=== PATIENT | female | born 1935 | race Caucasian/White ===

== ENCOUNTER 2020-06-24 16:07 | Observation (INO) | payer MEDICARE, BC ==
[2020-06-24] MEDS ORDERED: Sodium Chloride 0.9% 500 ML IV ONE (16:10)
[2020-06-24] MEDS ORDERED: Sodium Chloride 0.9% 10 ML Syringe FLUSH PRN (16:10)
[2020-06-24] MEDS ORDERED: Ondansetron 4 MG/2 ML SDV IVPUSH ONE (16:11)
--- NOTE | 2020-06-24 16:23 | EDM.PDOC ---
ED HPI GENERAL MEDICAL PROBLEM - General Chief Complaint: Gastrointestinal Problem Stated Complaint: COVID SYMPTOMS Time Seen by Provider: 06/24/20 16:18 Source of Information: Reports: Patient History Limitations: Reports: No Limitations - History of Present Illness INITIAL COMMENTS - FREE TEXT/NARRATIVE: Presents with N/V/D since 429 today. Diarrhea is watery brown, non-bloody. Denies abdominal pain. Also complains of generalized weakness. No recent travel, sick contacts, or recent antibiotics. Denies chest pain or SOB. Endorses slight cough. Received 2nd COVID vaccine on 06/22/20. The patient lives alone. Onset Date: 06/24/20 Onset Time: 04:30 Severity: Moderate Associated Symptoms: Reports: No Other Symptoms - Related Data Allergies Allergy/AdvReac Type Severity Reaction Status Date / Time Iodinated Contrast Media Allergy Severe Anaphylactic Verified 06/24/20 16:18 [Iodinated Contrast Media - Shock IV Dye] ketorolac tromethamine Allergy Abdominal Verified 06/24/20 16:18 [From Acular] Pain lisinopril Allergy Other Verified 06/24/20 16:18 Home Meds: Home Meds Aspirin 81 mg PO DAILY 12/05/15 [History] Insulin Detemir [Levemir] 25 units SUBCUT DAILY 12/05/15 [History] Metoprolol Tartrate 25 mg PO BID 12/05/15 [History] Multivitamin [Multivitamins] 1 cap PO DAILY 12/05/15 [History] Omeprazole 20 mg PO ASDIRECTED 12/05/15 [History] Potassium Chloride 10 meq PO ASDIRECTED 12/05/15 [History] Simvastatin 20 mg PO DAILY 12/05/15 [History] Triamterene/Hydrochlorothiazid [Triamterene-HCTZ 37.5-25 MG] 1 cap PO DAILY 12/05/15 [History] Insulin Aspart [NovoLOG] 0 unit SQ WITHMEALSANDBED PRN 05/15/16 [History] glipiZIDE [Glucotrol] 5 mg PO BID 05/15/16 [History] Acetaminophen [Acetaminophen Extra Strength] 1,000 mg PO Q6HR PRN 06/24/20 [History] Calcium Carbonate [Calcium] 500 mg PO TID 06/24/20 [History] Niacin [Niaspan] 500 mg PO ASDIRECTED 06/24/20 [History] Raloxifene [Evista] 60 mg PO DAILY 06/24/20 [History] Sennosides/Docusate Sodium [Senna Plus 8.6-50 mg Softgel] 1 tab PO BID 06/24/20 [History] traMADol [Ultram] 50 mg PO BEDTIME PRN 06/24/20 [History] traZODone 50 mg PO BEDTIME 06/24/20 [History] Past Medical History HEENT History: Reports: Cataract, Impaired Vision Cardiovascular History: Reports: Afib, Arrhythmia, High Cholesterol Respiratory History: Reports: None Gastrointestinal History: Reports: GERD Genitourinary History: Reports: Chronic Renal Insuffiency STAMPER BLOCKER History: Reports: Other 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 - Infectious Disease History Infectious Disease History: Reports: Chicken Pox, Measles, Mumps, Rubella - Past Surgical History HEENT Surgical History: Reports: Cataract Surgery GI Surgical History: Reports: Appendectomy, Cholecystectomy, Colonoscopy, Lysis of Adhesions Musculoskeletal Surgical History: Reports: Knee Replacement Social & Family History - Family History Family Medical History: No Pertinent Family History Other Cardiac Family History: SEE HX ED ROS GENERAL - Review of Systems Review Of Systems: Comprehensive ROS is negative, except as noted in HPI. ED EXAM, GI/ABD - Physical Exam Exam: See Below Exam Limited By: No Limitations General Appearance: Alert, WD/WN, No Apparent Distress Ears: Normal External Exam Nose: Normal Inspection Throat/Mouth: No Airway Compromise, Other (dry lips and oropharynx) Head: Atraumatic, Normocephalic Neck: Supple Respiratory/Chest: No Respiratory Distress, Lungs Clear, Normal Breath Sounds Cardiovascular: Regular Rate, Rhythm, Systolic Murmur GI/Abdominal Exam: Normal Bowel Sounds, Soft, No Distention, No Mass, Tender (mild LLQ) Back Exam: Full Range of Motion Extremities: Normal Range of Motion Neurological: Alert, Oriented, Normal Cognition Psychiatric: Normal Affect, Normal Mood Skin Exam: Warm, Dry, Intact #1 Interpretation EKG Date: 06/24/20 Time: 16:29 Rhythm: Other (sinus tachycardia) Rate (Beats/Min): 109 [place]: Normal P-Wave: Present QRS: Normal ST-T: Normal QT: Normal Comparison: NA - No Prior EKG Course - Vital Signs Last Recorded V/S: Last Vital Signs Temp 38.1 C 06/24/20 16:24 Pulse 114 H 06/24/20 16:24 Resp 18 06/24/20 16:24 BP 137/75 06/24/20 16:24 Pulse Ox 96 06/24/20 16:24 - Orders/Labs/Meds Orders: Active Orders 24 hr Category Date Time Status Admission Status [Patient Status] [ADT] Routine ADT 06/24/20 17:58 Ordered EKG Documentation Completion [RC] ASDIRECTED Care 06/24/20 16:17 Active Abdomen Pelvis wo Cont [CT] Stat Exams 06/24/20 16:11 Taken CULTURE BLOOD [BC] Urgent Lab 06/24/20 16:20 Received CULTURE BLOOD [BC] Urgent Lab 06/24/20 16:25 Received LACTIC ACID [CHEM] Stat Lab 06/24/20 19:20 Ordered STOOL CULTURE Stat Lab 06/24/20 16:17 Ordered Sodium Chloride 0.9% [Normal Saline] 1,000 ml Med 06/24/20 17:00 Active IV ASDIRECTED Sodium Chloride 0.9% [Saline Flush] Med 06/24/20 16:10 Active 10 ml FLUSH ASDIRECTED PRN Blood Culture x2 Reflex Set [OM.PC] Urgent Oth 06/24/20 16:08 Ordered Saline Lock Insert [OM.PC] Routine Oth 06/24/20 16:10 Ordered EKG 12 Lead [EK] Stat Ther 06/24/20 16:17 Ordered Medication Orders Sodium Chloride (Normal Saline) 1,000 mls @ 999 mls/hr IV ASDIRECTED ELPIDIO Sodium Chloride (Saline Flush) 10 ml FLUSH ASDIRECTED PRN PRN Reason: Keep Vein Open Labs: Laboratory Tests 06/24/20 06/24/20 06/24/20 Range/Units 16:13 16:20 16:20 WBC 11.6 H (3.0-10.3) x10-3/uL RBC 4.76 (3.60-5.20) x10(6)uL Hgb 13.4 (11.4-15.5) g/dL Hct 42.2 (34.2-48.2) % MCV 88.6 (76.7-100.5) fL MCH 28.2 (23.9-33.9) pg MCHC 31.8 L (31.9-34.8) g/dL RDW 13.8 (12.3-16.5) % Plt Count 120 L (151-488) x10(3)uL MPV 7.6 (7.1-12.4) fL Add Manual Diff Yes Neutrophils % (Manual) 84 H (46-82) % Lymphocytes % (Manual) 12 L (13-37) % Monocytes % (Manual) 4 (4-12) % Sodium 137 (135-145) mmol/L Potassium 3.4 L (3.5-5.3) mmol/L Chloride 99 L (100-110) mmol/L Carbon Dioxide 25 (21-32) mmol/L BUN 26 H (7-18) mg/dL Creatinine 1.7 H (0.55-1.02) mg/dL Est Cr Clr Drug Dosing 18.44 mL/min Estimated GFR (MDRD) 28 L (>60) BUN/Creatinine Ratio 15.3 (9-20) Glucose 195 H (80-116) mg/dL POC Glucose 172 H (74-100) mg/dL Lactic Acid (0.4-2.0) mmol/L Calcium 9.3 (8.6-10.2) mg/dL Total Bilirubin 0.4 (0.1-1.3) mg/dL AST 18 (5-25) IU/L ALT 15 D (12-36) U/L Alkaline Phosphatase 56 (56-112) IU/L Total Protein 7.3 (6.0-8.0) g/dL Albumin 3.2 (3.2-4.6) g/dL Globulin 4.1 g/dL Albumin/Globulin Ratio 0.8 Urine Color (YELLOW) Urine Appearance (CLEAR) Urine pH (5.0-6.5) Ur Specific [place] (1.010-1.025) Urine Protein (NEGATIVE) mg/dL Urine Glucose (UA) (NORMAL) mg/dL Urine Ketones (NEGATIVE) mg/dL Urine Occult Blood (NEGATIVE) Urine Nitrite (NEGATIVE) Urine Bilirubin (NEGATIVE) Urine Urobilinogen (NEGATIVE) mg/dL Ur Leukocyte Esterase (NEGATIVE) Urine RBC (0-5) Urine WBC (0-5) Ur Squamous Epith Cells (NS,R,O) Urine Bacteria (NS) SARS-CoV-2 RNA (JEROME) (NEGATIVE) 06/24/20 06/24/20 06/24/20 Range/Units 16:20 16:37 16:40 WBC (3.0-10.3) x10-3/uL RBC (3.60-5.20) x10(6)uL Hgb (11.4-15.5) g/dL Hct (34.2-48.2) % MCV (76.7-100.5) fL MCH (23.9-33.9) pg MCHC (31.9-34.8) g/dL RDW (12.3-16.5) % Plt Count (151-488) x10(3)uL MPV (7.1-12.4) fL Add Manual Diff Neutrophils % (Manual) (46-82) % Lymphocytes % (Manual) (13-37) % Monocytes % (Manual) (4-12) % Sodium (135-145) mmol/L Potassium (3.5-5.3) mmol/L Chloride (100-110) mmol/L Carbon Dioxide (21-32) mmol/L BUN (7-18) mg/dL Creatinine (0.55-1.02) mg/dL Est Cr Clr Drug Dosing mL/min Estimated GFR (MDRD) (>60) BUN/Creatinine Ratio (9-20) Glucose (80-116) mg/dL POC Glucose (74-100) mg/dL Lactic Acid 2.8 H* (0.4-2.0) mmol/L Calcium (8.6-10.2) mg/dL Total Bilirubin (0.1-1.3) mg/dL AST (5-25) IU/L ALT (12-36) U/L Alkaline Phosphatase (56-112) IU/L Total Protein (6.0-8.0) g/dL Albumin (3.2-4.6) g/dL Globulin g/dL Albumin/Globulin Ratio Urine Color Yellow (YELLOW) Urine Appearance Clear (CLEAR) Urine pH 5.0 (5.0-6.5) Ur Specific [place] 1.020 (1.010-1.025) Urine Protein Trace (NEGATIVE) mg/dL Urine Glucose (UA) Normal (NORMAL) mg/dL Urine Ketones Negative (NEGATIVE) mg/dL Urine Occult Blood Large H (NEGATIVE) Urine Nitrite Negative (NEGATIVE) Urine Bilirubin Negative (NEGATIVE) Urine Urobilinogen Normal (NEGATIVE) mg/dL Ur Leukocyte Esterase Negative (NEGATIVE) Urine RBC 10-20 H (0-5) Urine WBC 0-5 (0-5) Ur Squamous Epith Cells Few H (NS,R,O) Urine Bacteria Few H (NS) SARS-CoV-2 RNA (JEROME) Negative (NEGATIVE) Meds: Medications Generic Name Dose Route Start Last Admin Trade Name Freq PRN Reason Stop Dose Admin Sodium Chloride 1,000 mls @ 999 mls/hr 06/24/20 17:00 Normal Saline IV ASDIRECTED ELPIDIO Sodium Chloride 10 ml 06/24/20 16:10 Saline Flush FLUSH ASDIRECTED PRN Keep Vein Open Discontinued Medications Generic Name Dose Route Start Last Admin Trade Name Freq PRN Reason Stop Dose Admin Sodium Chloride 500 mls @ 500 mls/hr 06/24/20 16:10 06/24/20 16:59 Normal Saline IV 06/24/20 17:09 500 mls/hr .BOLUS ONE Administration Ondansetron HCl 4 mg 06/24/20 16:11 06/24/20 17:00 Zofran IVPUSH 06/24/20 16:12 4 mg ONETIME ONE Administration - Radiology Interpretation Free Text/Narrative:: CT Abd/Pelvis s/ contrast: IMPRESSION: No acute or specific finding to explain nausea, vomiting or diarrhea. Specifically the GI tract is within normal limits in caliber and appearance. Dictated by Flako Navarro MD @ 06/24/2020 5:53:37 PM - Re-Assessments/Exams Free Text/Narrative Re-Assessment/Exam: 06/24/20 18:03 Patient's nausea has improved. Departure - Departure Time of Disposition: 18:05 Disposition: Refer to Observation Condition: Fair Clinical Impression: Gastroenteritis, Elevated lactic acid level - Discharge Information Referrals: Ling Barnes MELTER OPERATOR [Primary Care Provider] - Forms: ED Department Discharge Sepsis Event Note (ED) - Focused Exam Vital Signs: Vital Signs Temp Pulse Resp BP Pulse Ox 06/24/20 16:24 38.1 C 114 H 18 137/75 96 06/24/20 16:23 38.1 C 114 H 18 137/75 96 - My Orders Last 24 Hours: My Active Orders 06/24/20 16:08 Blood Culture x2 Reflex Set [OM.PC] Urgent 06/24/20 16:10 Sodium Chloride 0.9% [Saline Flush] 10 ml FLUSH ASDIRECTED PRN Saline Lock Insert [OM.PC] Routine 06/24/20 16:11 Abdomen Pelvis wo Cont [CT] Stat 06/24/20 16:17 EKG Documentation Completion [RC] ASDIRECTED STOOL CULTURE Stat EKG 12 Lead [EK] Stat 06/24/20 16:20 CULTURE BLOOD [BC] Urgent 06/24/20 16:25 CULTURE BLOOD [BC] Urgent 06/24/20 17:00 Sodium Chloride 0.9% [Normal Saline] 1,000 ml IV ASDIRECTED 06/24/20 17:58 Admission Status [Patient Status] [ADT] Routine 06/24/20 19:20 LACTIC ACID [CHEM] Stat - Assessment/Plan Last 24 Hours: My Active Orders 06/24/20 16:08 Blood Culture x2 Reflex Set [OM.PC] Urgent 06/24/20 16:10 Sodium Chloride 0.9% [Saline Flush] 10 ml FLUSH ASDIRECTED PRN Saline Lock Insert [OM.PC] Routine 06/24/20 16:11 Abdomen Pelvis wo Cont [CT] Stat 06/24/20 16:17 EKG Documentation Completion [RC] ASDIRECTED STOOL CULTURE Stat EKG 12 Lead [EK] Stat 06/24/20 16:20 CULTURE BLOOD [BC] Urgent 06/24/20 16:25 CULTURE BLOOD [BC] Urgent 06/24/20 17:00 Sodium Chloride 0.9% [Normal Saline] 1,000 ml IV ASDIRECTED 06/24/20 17:58 Admission Status [Patient Status] [ADT] Routine 06/24/20 19:20 LACTIC ACID [CHEM] Stat
[2020-06-24] MEDS ORDERED: Sodium Chloride 0.9% 1,000 ML IV SCH (17:00)
[2020-06-24] MEDS: Insulin Lispro 100 Unit/ML 3 ML KwikPen SUBCUT SCH (18:00)
[2020-06-24] MEDS ORDERED: Piperacillin/Tazobactam 2.25 GM in Sodium Chloride 0.9% 50 ML IV ONE (18:03)
[2020-06-24] MEDS ORDERED: Ondansetron 4 MG/2 ML SDV IV PRN (18:07)
[2020-06-24] MEDS ORDERED: 50% Dextrose in Water 50 ML Syringe IVPUSH PRN (18:19)
[2020-06-24] MEDS ORDERED: Glucagon,Human Recombinant 1 MG Vial IM PRN (18:19)
[2020-06-24] MEDS: Pantoprazole 40 MG Vial IVPUSH SCH (18:56)
[2020-06-24] MEDS: Sodium Chloride 0.9% 1,000 ML IV SCH (19:35)
[2020-06-24] MEDS ORDERED: traZODone 100 MG Tab PO SCH (21:00)
[2020-06-24] MEDS ORDERED: traZODone 50 MG Tab ONE (21:19)
[2020-06-24] MEDS: Metoprolol Tartrate 25 MG Tab PO SCH (21:21)
[2020-06-25] MEDS: Piperacillin/Tazobactam 2.25 GM in Sodium Chloride 0.9% 50 ML IV SCH ×2 (01:43→10:21)
[2020-06-25] MEDS: Sodium Chloride 0.9% 1,000 ML IV SCH (06:00)
[2020-06-25] MEDS: Acetaminophen 500 MG Tab PO PRN ×2 (07:42→20:31)
[2020-06-25] MEDS: Insulin Lispro 100 Unit/ML 3 ML KwikPen SUBCUT SCH ×3 (08:00→18:24)
[2020-06-25] MEDS: Metoprolol Tartrate 25 MG Tab PO SCH ×2 (09:00→20:28)
[2020-06-25] MEDS ORDERED: Insulin Glargine,Human Rec. Analog 100 Units/ML 3 ML Pen SUBCUT ONE (09:58)
[2020-06-25] MEDS ORDERED: Insulin Lispro 100 Unit/ML 3 ML KwikPen SUBCUT ONE (09:58)
[2020-06-25] MEDS: Insulin Glargine,Human Rec. Analog 100 Units/ML 3 ML Pen SUBCUT SCH (10:08)
[2020-06-25] MEDS: Pantoprazole 40 MG Vial IVPUSH SCH (10:18)
[2020-06-25] MEDS: Aspirin 81 MG Tab.Chew PO SCH (10:22)
[2020-06-25] MEDS: Potassium Chloride 20 MEQ Tab.ER PO SCH ×2 (11:07→20:27)
--- NOTE | 2020-06-25 13:44 | PCM.HP.2 ---
H&P History of Present Illness - General Date of Service: 06/25/20 Admit Problem/Dx: Admission Diagnosis/Problem Admission Diagnosis/Problem Nausea, vomiting & Diarrhea, adverse effect of Covid vaccination Source of Information: Patient, EMS Notes Reviewed - History of Present Illness Initial Comments - Free Text/Narative: Janice started having Nausea, vomiting and diarrhea yesterday morning, loose brown stools. Denies any fevers, chills, sinus symptoms, shortness of breath, chest pain, abdominal pain. Had body aches yesterday. Had 2nd Covid vaccine 06/22/2020. Covid test negative. WBC was 11.6, 7.9 today. UA showed blood, 10-20 RBC but no Leukocyte esterase, nitrates or WBC in urine. Received 1 dose of Zosyn in ER. No urine culture done. No urinary symptoms. She has history of diabetes, on insulin. Lives alone. Magnesium 1.5, Potassium 3.1. Family unable to bring her home medications in. Generalized Pain Score (Numeric/FACES): 1 - Related Data Allergies/Adverse Reactions: Allergies Allergy/AdvReac Type Severity Reaction Status Date / Time Iodinated Contrast Media Allergy Severe Anaphylactic Verified 06/24/20 16:18 [Iodinated Contrast Media - Shock IV Dye] ketorolac tromethamine Allergy Abdominal Verified 06/24/20 16:18 [From Acular] Pain lisinopril Allergy Other Verified 06/24/20 16:18 Home Medications: Home Meds Aspirin 81 mg PO DAILY 12/05/15 [History] Insulin Detemir [Levemir] 25 units SUBCUT DAILY 12/05/15 [History] Metoprolol Tartrate 25 mg PO BID 12/05/15 [History] Multivitamin [Multivitamins] 1 cap PO DAILY 12/05/15 [History] Omeprazole 20 mg PO ASDIRECTED 12/05/15 [History] Potassium Chloride 10 meq PO ASDIRECTED 12/05/15 [History] Simvastatin 20 mg PO DAILY 12/05/15 [History] Triamterene/Hydrochlorothiazid [Triamterene-HCTZ 37.5-25 MG] 1 cap PO DAILY 12/05/15 [History] Insulin Aspart [NovoLOG] 0 unit SQ WITHMEALSANDBED PRN 05/15/16 [History] glipiZIDE [Glucotrol] 5 mg PO BID 05/15/16 [History] Acetaminophen [Acetaminophen Extra Strength] 1,000 mg PO Q6HR PRN 06/24/20 [History] Calcium Carbonate [Calcium] 500 mg PO TID 06/24/20 [History] Niacin [Niaspan] 500 mg PO ASDIRECTED 06/24/20 [History] Raloxifene [Evista] 60 mg PO DAILY 06/24/20 [History] Sennosides/Docusate Sodium [Senna Plus 8.6-50 mg Softgel] 1 tab PO BID 06/24/20 [History] traMADol [Ultram] 50 mg PO BEDTIME PRN 06/24/20 [History] traZODone 50 mg PO BEDTIME 06/24/20 [History] Past Medical History HEENT History: Reports: Cataract, Impaired Vision Cardiovascular History: Reports: Afib, Arrhythmia, High Cholesterol Respiratory History: Reports: None Gastrointestinal History: Reports: GERD Genitourinary History: Reports: Chronic Renal Insuffiency TRANSFUSION AIDE History: Reports: Other OB/BYN History: III PARA II AB I Musculoskeletal History: Reports: Gout, Osteoporosis Neurological History: Reports: None Psychiatric History: Reports: None Endocrine/Metabolic History: Reports: Diabetes, Type II Hematologic History: Reports: None Immunologic History: Reports: None Oncologic (Cancer) History: Reports: Breast Other Oncologic History: STATES HAD SKIN LESIONS REMOVED, UNKNOWN TYPE. 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 LOSS OF HEARING R/T IT. Cardiovascular Surgical History: Reports: None Respiratory Surgical History: Reports: None GI Surgical History: Reports: Appendectomy, Cholecystectomy, Colonoscopy, Lysis of Adhesions Female Surgical History: Reports: Hysterectomy Endocrine Surgical History: Reports: None Musculoskeletal Surgical History: Reports: Knee Replacement Oncologic Surgical History: Reports: Lumpectomy, Mastectomy Other Oncologic Surgeries/Procedures: LEFT BREAST MASTECTOMY Social & Family History - Family History Family Medical History: No Pertinent Family History Other Cardiac Family History: SEE HX - Tobacco Use Tobacco Use Status *Q: Never Tobacco User - Caffeine Use Caffeine Use: Reports: Coffee - Recreational Drug Use Recreational Drug Use: No H&P Review of Systems - Review of Systems: Review Of Systems: Comprehensive ROS is negative, except as noted in HPI. Exam - Exam Exam: See Below - Vital Signs Vital Signs: Last Vital Signs Temp 97.8 F 06/25/20 08:00 Pulse 72 06/25/20 09:00 Resp 18 06/25/20 08:00 BP 98/49 L 06/25/20 09:00 Pulse Ox 94 L 06/25/20 08:00 Weight: 146 lb 9.6 oz - Exam General: Alert, Oriented, Cooperative. No: Mild Distress HEENT: PERRLA, Conjunctiva Clear, EOMI, Hearing Intact, Mucosa Moist & [place] Neck: Trachea Midline Lungs: Clear to Auscultation, Normal Respiratory Effort Cardiovascular: Regular Rate, Regular Rhythm GI/Abdominal Exam: Normal Bowel Sounds, Soft, No Distention, Guarding, Tender (LUQ). No: Rigid, Rebound (Female) Exam: Deferred Rectal (Female) Exam: Deferred Extremities: No Pedal Edema Peripheral Pulses: 2+: Radial (L), Radial (R) Neurological: Cranial Nerves Intact, Normal Speech, Normal Tone - Patient Data Lab Results Last 24 hrs: Laboratory Results - last 24 hr 06/24/20 06/24/20 06/24/20 Range/Units 16:13 16:20 16:20 WBC 11.6 H (3.0-10.3) x10-3/uL RBC 4.76 (3.60-5.20) x10(6)uL Hgb 13.4 (11.4-15.5) g/dL Hct 42.2 (34.2-48.2) % MCV 88.6 (76.7-100.5) fL MCH 28.2 (23.9-33.9) pg MCHC 31.8 L (31.9-34.8) g/dL RDW 13.8 (12.3-16.5) % Plt Count 120 L (151-488) x10(3)uL MPV 7.6 (7.1-12.4) fL Neut % (Auto) (30.8-76.2) % Lymph % (Auto) (18.4-52.1) % [place] % (Auto) (4.4-15.7) % Eos % (Auto) (0.6-8.1) % Baso % (Auto) (0.2-1.5) % Neut # (Auto) (1.5-6.3) x10-3/uL Lymph # (Auto) (1.0-4.4) x10-3/uL [place] # (Auto) (0.3-1.0) x10-3/uL Eos # (Auto) (0.0-0.8) x10-3/uL Baso # (Auto) (0.0-0.1) x10-3/uL Add Manual Diff Yes Neutrophils % (Manual) 84 H (46-82) % Lymphocytes % (Manual) 12 L (13-37) % Monocytes % (Manual) 4 (4-12) % Sodium 137 (135-145) mmol/L Potassium 3.4 L (3.5-5.3) mmol/L Chloride 99 L (100-110) mmol/L Carbon Dioxide 25 (21-32) mmol/L BUN 26 H (7-18) mg/dL Creatinine 1.7 H (0.55-1.02) mg/dL Est Cr Clr Drug Dosing 18.44 mL/min Estimated GFR (MDRD) 28 L (>60) BUN/Creatinine Ratio 15.3 (9-20) Glucose 195 H (80-116) mg/dL POC Glucose 172 H (74-100) mg/dL Lactic Acid (0.4-2.0) mmol/L Calcium 9.3 (8.6-10.2) mg/dL Magnesium (1.8-2.5) mg/dL Total Bilirubin 0.4 (0.1-1.3) mg/dL AST 18 (5-25) IU/L ALT 15 D (12-36) U/L Alkaline Phosphatase 56 (56-112) IU/L Total Protein 7.3 (6.0-8.0) g/dL Albumin 3.2 (3.2-4.6) g/dL Globulin 4.1 g/dL Albumin/Globulin Ratio 0.8 Urine Color (YELLOW) Urine Appearance (CLEAR) Urine pH (5.0-6.5) Ur Specific [place] (1.010-1.025) Urine Protein (NEGATIVE) mg/dL Urine Glucose (UA) (NORMAL) mg/dL Urine Ketones (NEGATIVE) mg/dL Urine Occult Blood (NEGATIVE) Urine Nitrite (NEGATIVE) Urine Bilirubin (NEGATIVE) Urine Urobilinogen (NEGATIVE) mg/dL Ur Leukocyte Esterase (NEGATIVE) Urine RBC (0-5) Urine WBC (0-5) Ur Squamous Epith Cells (NS,R,O) Urine Bacteria (NS) SARS-CoV-2 RNA (JEROME) (NEGATIVE) 06/24/20 06/24/20 06/24/20 Range/Units 16:20 16:37 16:40 WBC (3.0-10.3) x10-3/uL RBC (3.60-5.20) x10(6)uL Hgb (11.4-15.5) g/dL Hct (34.2-48.2) % MCV (76.7-100.5) fL MCH (23.9-33.9) pg MCHC (31.9-34.8) g/dL RDW (12.3-16.5) % Plt Count (151-488) x10(3)uL MPV (7.1-12.4) fL Neut % (Auto) (30.8-76.2) % Lymph % (Auto) (18.4-52.1) % [place] % (Auto) (4.4-15.7) % Eos % (Auto) (0.6-8.1) % Baso % (Auto) (0.2-1.5) % Neut # (Auto) (1.5-6.3) x10-3/uL Lymph # (Auto) (1.0-4.4) x10-3/uL [place] # (Auto) (0.3-1.0) x10-3/uL Eos # (Auto) (0.0-0.8) x10-3/uL Baso # (Auto) (0.0-0.1) x10-3/uL Add Manual Diff Neutrophils % (Manual) (46-82) % Lymphocytes % (Manual) (13-37) % Monocytes % (Manual) (4-12) % Sodium (135-145) mmol/L Potassium (3.5-5.3) mmol/L Chloride (100-110) mmol/L Carbon Dioxide (21-32) mmol/L BUN (7-18) mg/dL Creatinine (0.55-1.02) mg/dL Est Cr Clr Drug Dosing mL/min Estimated GFR (MDRD) (>60) BUN/Creatinine Ratio (9-20) Glucose (80-116) mg/dL POC Glucose (74-100) mg/dL Lactic Acid 2.8 H* (0.4-2.0) mmol/L Calcium (8.6-10.2) mg/dL Magnesium (1.8-2.5) mg/dL Total Bilirubin (0.1-1.3) mg/dL AST (5-25) IU/L ALT (12-36) U/L Alkaline Phosphatase (56-112) IU/L Total Protein (6.0-8.0) g/dL Albumin (3.2-4.6) g/dL Globulin g/dL Albumin/Globulin Ratio Urine Color Yellow (YELLOW) Urine Appearance Clear (CLEAR) Urine pH 5.0 (5.0-6.5) Ur Specific [place] 1.020 (1.010-1.025) Urine Protein Trace (NEGATIVE) mg/dL Urine Glucose (UA) Normal (NORMAL) mg/dL Urine Ketones Negative (NEGATIVE) mg/dL Urine Occult Blood Large H (NEGATIVE) Urine Nitrite Negative (NEGATIVE) Urine Bilirubin Negative (NEGATIVE) Urine Urobilinogen Normal (NEGATIVE) mg/dL Ur Leukocyte Esterase Negative (NEGATIVE) Urine RBC 10-20 H (0-5) Urine WBC 0-5 (0-5) Ur Squamous Epith Cells Few H (NS,R,O) Urine Bacteria Few H (NS) SARS-CoV-2 RNA (JEROME) Negative (NEGATIVE) 06/24/20 06/24/20 06/25/20 Range/Units 19:20 21:44 06:30 WBC 7.9 (3.0-10.3) x10-3/uL RBC 3.97 (3.60-5.20) x10(6)uL Hgb 11.4 (11.4-15.5) g/dL Hct 35.5 (34.2-48.2) % MCV 89.3 (76.7-100.5) fL MCH 28.7 (23.9-33.9) pg MCHC 32.2 (31.9-34.8) g/dL RDW 13.9 (12.3-16.5) % Plt Count 101 L (151-488) x10(3)uL MPV 7.6 (7.1-12.4) fL Neut % (Auto) 71.7 (30.8-76.2) % Lymph % (Auto) 20.4 (18.4-52.1) % [place] % (Auto) 7.4 (4.4-15.7) % Eos % (Auto) 0.3 L (0.6-8.1) % Baso % (Auto) 0.2 (0.2-1.5) % Neut # (Auto) 5.7 (1.5-6.3) x10-3/uL Lymph # (Auto) 1.6 (1.0-4.4) x10-3/uL [place] # (Auto) 0.6 (0.3-1.0) x10-3/uL Eos # (Auto) 0.0 (0.0-0.8) x10-3/uL Baso # (Auto) 0.0 (0.0-0.1) x10-3/uL Add Manual Diff Neutrophils % (Manual) (46-82) % Lymphocytes % (Manual) (13-37) % Monocytes % (Manual) (4-12) % Sodium (135-145) mmol/L Potassium (3.5-5.3) mmol/L Chloride (100-110) mmol/L Carbon Dioxide (21-32) mmol/L BUN (7-18) mg/dL Creatinine (0.55-1.02) mg/dL Est Cr Clr Drug Dosing mL/min Estimated GFR (MDRD) (>60) BUN/Creatinine Ratio (9-20) Glucose (80-116) mg/dL POC Glucose 134 H (74-100) mg/dL Lactic Acid 2.1 H* (0.4-2.0) mmol/L Calcium (8.6-10.2) mg/dL Magnesium (1.8-2.5) mg/dL Total Bilirubin (0.1-1.3) mg/dL AST (5-25) IU/L ALT (12-36) U/L Alkaline Phosphatase (56-112) IU/L Total Protein (6.0-8.0) g/dL Albumin (3.2-4.6) g/dL Globulin g/dL Albumin/Globulin Ratio Urine Color (YELLOW) Urine Appearance (CLEAR) Urine pH (5.0-6.5) Ur Specific [place] (1.010-1.025) Urine Protein (NEGATIVE) mg/dL Urine Glucose (UA) (NORMAL) mg/dL Urine Ketones (NEGATIVE) mg/dL Urine Occult Blood (NEGATIVE) Urine Nitrite (NEGATIVE) Urine Bilirubin (NEGATIVE) Urine Urobilinogen (NEGATIVE) mg/dL Ur Leukocyte Esterase (NEGATIVE) Urine RBC (0-5) Urine WBC (0-5) Ur Squamous Epith Cells (NS,R,O) Urine Bacteria (NS) SARS-CoV-2 RNA (JEROME) (NEGATIVE) 06/25/20 06/25/20 06/25/20 Range/Units 06:30 06:30 06:30 WBC (3.0-10.3) x10-3/uL RBC (3.60-5.20) x10(6)uL Hgb (11.4-15.5) g/dL Hct (34.2-48.2) % MCV (76.7-100.5) fL MCH (23.9-33.9) pg MCHC (31.9-34.8) g/dL RDW (12.3-16.5) % Plt Count (151-488) x10(3)uL MPV (7.1-12.4) fL Neut % (Auto) (30.8-76.2) % Lymph % (Auto) (18.4-52.1) % [place] % (Auto) (4.4-15.7) % Eos % (Auto) (0.6-8.1) % Baso % (Auto) (0.2-1.5) % Neut # (Auto) (1.5-6.3) x10-3/uL Lymph # (Auto) (1.0-4.4) x10-3/uL [place] # (Auto) (0.3-1.0) x10-3/uL Eos # (Auto) (0.0-0.8) x10-3/uL Baso # (Auto) (0.0-0.1) x10-3/uL Add Manual Diff Neutrophils % (Manual) (46-82) % Lymphocytes % (Manual) (13-37) % Monocytes % (Manual) (4-12) % Sodium 141 (135-145) mmol/L Potassium 3.1 L (3.5-5.3) mmol/L Chloride 106 D (100-110) mmol/L Carbon Dioxide 27 (21-32) mmol/L BUN 17 (7-18) mg/dL Creatinine 1.5 H (0.55-1.02) mg/dL Est Cr Clr Drug Dosing 20.90 mL/min Estimated GFR (MDRD) 33 L (>60) BUN/Creatinine Ratio 11.3 (9-20) Glucose 76 L D (80-116) mg/dL POC Glucose (74-100) mg/dL Lactic Acid 1.0 (0.4-2.0) mmol/L Calcium 7.3 L D (8.6-10.2) mg/dL Magnesium 1.5 L (1.8-2.5) mg/dL Total Bilirubin (0.1-1.3) mg/dL AST (5-25) IU/L ALT (12-36) U/L Alkaline Phosphatase (56-112) IU/L Total Protein (6.0-8.0) g/dL Albumin (3.2-4.6) g/dL Globulin g/dL Albumin/Globulin Ratio Urine Color (YELLOW) Urine Appearance (CLEAR) Urine pH (5.0-6.5) Ur Specific [place] (1.010-1.025) Urine Protein (NEGATIVE) mg/dL Urine Glucose (UA) (NORMAL) mg/dL Urine Ketones (NEGATIVE) mg/dL Urine Occult Blood (NEGATIVE) Urine Nitrite (NEGATIVE) Urine Bilirubin (NEGATIVE) Urine Urobilinogen (NEGATIVE) mg/dL Ur Leukocyte Esterase (NEGATIVE) Urine RBC (0-5) Urine WBC (0-5) Ur Squamous Epith Cells (NS,R,O) Urine Bacteria (NS) SARS-CoV-2 RNA (JEROME) (NEGATIVE) 06/25/20 06/25/20 Range/Units 09:52 11:33 WBC (3.0-10.3) x10-3/uL RBC (3.60-5.20) x10(6)uL Hgb (11.4-15.5) g/dL Hct (34.2-48.2) % MCV (76.7-100.5) fL MCH (23.9-33.9) pg MCHC (31.9-34.8) g/dL RDW (12.3-16.5) % Plt Count (151-488) x10(3)uL MPV (7.1-12.4) fL Neut % (Auto) (30.8-76.2) % Lymph % (Auto) (18.4-52.1) % [place] % (Auto) (4.4-15.7) % Eos % (Auto) (0.6-8.1) % Baso % (Auto) (0.2-1.5) % Neut # (Auto) (1.5-6.3) x10-3/uL Lymph # (Auto) (1.0-4.4) x10-3/uL [place] # (Auto) (0.3-1.0) x10-3/uL Eos # (Auto) (0.0-0.8) x10-3/uL Baso # (Auto) (0.0-0.1) x10-3/uL Add Manual Diff Neutrophils % (Manual) (46-82) % Lymphocytes % (Manual) (13-37) % Monocytes % (Manual) (4-12) % Sodium (135-145) mmol/L Potassium (3.5-5.3) mmol/L Chloride (100-110) mmol/L Carbon Dioxide (21-32) mmol/L BUN (7-18) mg/dL Creatinine (0.55-1.02) mg/dL Est Cr Clr Drug Dosing mL/min Estimated GFR (MDRD) (>60) BUN/Creatinine Ratio (9-20) Glucose (80-116) mg/dL POC Glucose 162 H 172 H (74-100) mg/dL Lactic Acid (0.4-2.0) mmol/L Calcium (8.6-10.2) mg/dL Magnesium (1.8-2.5) mg/dL Total Bilirubin (0.1-1.3) mg/dL AST (5-25) IU/L ALT (12-36) U/L Alkaline Phosphatase (56-112) IU/L Total Protein (6.0-8.0) g/dL Albumin (3.2-4.6) g/dL Globulin g/dL Albumin/Globulin Ratio Urine Color (YELLOW) Urine Appearance (CLEAR) Urine pH (5.0-6.5) Ur Specific [place] (1.010-1.025) Urine Protein (NEGATIVE) mg/dL Urine Glucose (UA) (NORMAL) mg/dL Urine Ketones (NEGATIVE) mg/dL Urine Occult Blood (NEGATIVE) Urine Nitrite (NEGATIVE) Urine Bilirubin (NEGATIVE) Urine Urobilinogen (NEGATIVE) mg/dL Ur Leukocyte Esterase (NEGATIVE) Urine RBC (0-5) Urine WBC (0-5) Ur Squamous Epith Cells (NS,R,O) Urine Bacteria (NS) SARS-CoV-2 RNA (JEROME) (NEGATIVE) Result Diagrams: 06/25/20 06:30 06/25/20 06:30 Sepsis Event Note - Evaluation Sepsis Screening Result: No Definite Risk - Focused Exam Vital Signs: Vital Signs Temp Pulse Pulse Resp BP BP Pulse Ox 06/25/20 09:00 72 98/49 L 06/25/20 08:00 97.8 F 72 18 98/49 L 94 L *Q Meaningful Use (ADM) - VTE *Q VTE Mechanical Contraindications *Q: At Risk for Falls - VTE Risk Assess *Q Each Risk Factor Represents 1 Point: None Total Score 1 Point Risk Factors: 0 Each Risk Factor Represents 2 Points: None Total Score 2 Point Risk Factors: 0 Each Risk Factor Represents 3 Points: Age 75 Years or Greater Total Score 3 Point Risk Factors: 3 Each Risk Factor Represents 5 Points: None Total Score 5 Point Risk Factors: 0 Venous Thromboembolism Risk Factor Score *Q: 3 - Problem List (1) Nausea & vomiting SNOMED Code(s): 72951406 ICD Code: R11.2 - NAUSEA WITH VOMITING, UNSPECIFIED Status: Acute Current Visit: Yes (2) Diarrhea after vaccination SNOMED Code(s): 21284646 ICD Code: R19.7 - DIARRHEA, UNSPECIFIED; T50.Z95A - ADVERSE EFFECT OF VACCINES AND BIOLOGICAL SUBSTANCES, INIT Status: Acute Current Visit: Yes (3) Adverse effect of COVID-19 vaccine SNOMED Code(s): 638978156 ICD Code: T50.B95A - ADVERSE EFFECT OF OTHER VIRAL VACCINES, INITIAL ENCOUNTER Status: Acute Current Visit: Yes (4) Hypokalemia due to excessive gastrointestinal loss of potassium SNOMED Code(s): 11046650 ICD Code: E87.6 - HYPOKALEMIA Status: Acute Current Visit: Yes (5) Hypomagnesemia SNOMED Code(s): 410228578 ICD Code: E83.42 - HYPOMAGNESEMIA Status: Acute Current Visit: Yes (6) Diabetes SNOMED Code(s): 93625801 ICD Code: E11.9 - TYPE 2 DIABETES MELLITUS WITHOUT COMPLICATIONS Status: Chronic Current Visit: Yes Qualifiers: Diabetes mellitus type: type 2 Diabetes mellitus long term care administrator insulin use: with long term care administrator use (7) Hypertension SNOMED Code(s): 91637020 ICD Code: I10 - ESSENTIAL (PRIMARY) HYPERTENSION Status: Chronic Current Visit: Yes (8) GERD (gastroesophageal reflux disease) SNOMED Code(s): 699843358 ICD Code: K21.9 - GASTRO-ESOPHAGEAL REFLUX DISEASE WITHOUT ESOPHAGITIS Status: Chronic Current Visit: Yes (9) Hyperlipidemia SNOMED Code(s): 68436927 ICD Code: E78.5 - HYPERLIPIDEMIA, UNSPECIFIED Status: Chronic Current Visit: Yes (10) Gastroenteritis SNOMED Code(s): 65909348 ICD Code: K52.9 - NONINFECTIVE GASTROENTERITIS AND COLITIS, UNSPECIFIED St atus: Ruled-out Current Visit: Yes Problem List Initiated/Reviewed/Updated: Yes Orders Last 24hrs: Active Orders 24 hr Category Date Time Status Admission Status [Patient Status] [ADT] Routine ADT 06/24/20 17:58 Active Ambulate [RC] PER UNIT ROUTINE Care 06/24/20 18:11 Active Antiembolic Devices [RC] .Routine Care 06/24/20 18:07 Active Blood Glucose Check, Bedside [RC] QIDACANDBED Care 06/24/20 18:07 Active EKG Documentation Completion [RC] ASDIRECTED Care 06/24/20 16:17 Active Height and Weight [RC] DAILY Care 06/24/20 18:07 Active Intake and Output [RC] QSHIFT Care 06/24/20 18:10 Active Notify Provider Vital Signs [RC] ASDIRECTED Care 06/24/20 18:11 Active Oxygen Therapy [RC] PRN Care 06/24/20 18:07 Active Up With Assistance [RC] ASDIRECTED Care 06/24/20 18:07 Active VTE/DVT Education [RC] Per Unit Routine Care 06/24/20 18:07 Active Vital Signs [RC] QSHIFT Care 06/24/20 18:07 Active Consistent Carbohydrate Diet [DIET] Diet 06/25/20 Lunch Active Abdomen Pelvis wo Cont [CT] Stat Exams 06/24/20 16:11 Taken BASIC METABOLIC PANEL,BMP [CHEM] Routine Lab 06/26/20 06:00 Ordered C DIFFICILE AG/TOXIN W/REFLEX [RM] Stat Lab 06/24/20 18:24 Ordered CBC WITH AUTO DIFF [HEME] Routine Lab 06/26/20 06:00 Ordered CULTURE BLOOD [BC] Urgent Lab 06/24/20 16:20 Received CULTURE BLOOD [BC] Urgent Lab 06/24/20 16:25 Received STOOL CULTURE Stat Lab 06/24/20 16:17 Ordered UA W/MICROSCOPIC [URIN] Routine Lab 06/25/20 13:00 Ordered Acetaminophen [Tylenol Extra Strength] Med 06/24/20 18:14 Active 1,000 mg PO Q6H PRN Aspirin Med 06/25/20 09:00 Active 81 mg PO DAILY Dextrose 50% in Water Med 06/24/20 18:19 Active 50 ml IVPUSH ASDIRECTED PRN Glucagon,Human Recombinant [GlucaGen] Med 06/24/20 18:19 Active 1 mg IM ASDIRECTED PRN Insulin Glarg,Human.Rec.Analog [LantUS Solostar] Med 06/25/20 09:00 Active 25 units SUBCUT DAILY Insulin Lispro [HumaLOG] Med 06/24/20 18:19 Active See Protocol SUBCUT TIDMEALS Magnesium Oxide Med 06/25/20 18:00 Active 400 mg PO DAILY@1800 Metoprolol Tartrate [Lopressor] Med 06/24/20 21:00 Active 25 mg PO BID Ondansetron [Zofran] Med 06/24/20 18:07 Active 4 mg IV Q8H PRN Pantoprazole [ProTONIX IV] Med 06/24/20 18:30 Active 40 mg IVPUSH DAILY Potassium Chloride [Klor-Con M20] Med 06/25/20 10:30 Active 20 meq PO BID Sodium Chloride 0.9% [Normal Saline] 1,000 ml Med 06/24/20 18:15 Active IV ASDIRECTED Sodium Chloride 0.9% [Saline Flush] Med 06/24/20 16:10 Active 10 ml FLUSH ASDIRECTED PRN traZODone Med 06/25/20 21:00 Active 50 mg PO BEDTIME Antiembolic Hose [OM.PC] Per Unit Routine Oth 06/24/20 18:11 Ordered Blood Culture x2 Reflex Set [OM.PC] Urgent Oth 06/24/20 16:08 Ordered Saline Lock Insert [OM.PC] Routine Oth 06/24/20 16:10 Ordered Resuscitation Status Routine Resus Stat 06/24/20 18:07 Ordered EKG 12 Lead [EK] Stat Ther 06/24/20 16:17 Ordered Medication Orders Acetaminophen (Tylenol Extra Strength) 1,000 mg PO Q6H PRN PRN Reason: Pain Last Admin: 06/25/20 07:42 Dose: 1,000 mg Documented by: PAULO Aspirin (Aspirin) 81 mg PO DAILY [facility] Last Admin: 06/25/20 10:22 Dose: 81 mg Documented by: MAXIMILIANO Dextrose/Water (Dextrose 50% In Water) 50 ml IVPUSH ASDIRECTED PRN PRN Reason: Hypoglycemia Glucagon (Glucagen) 1 mg IM ASDIRECTED PRN PRN Reason: Hypoglycemia Sodium Chloride (Normal Saline) 1,000 mls @ 100 mls/hr IV ASDIRECTED ELPIDIO Last Admin: 06/25/20 06:00 Dose: 100 mls/hr Documented by: Infusion: 06/25/20 05:35 Dose: 100 mls/hr Documented by: Admin: 06/24/20 19:35 Dose: 100 mls/hr Documented by: MAXIMILIANO Insulin Glargine (Lantus Solostar) 25 units SUBCUT DAILY [facility] Last Admin: 06/25/20 10:08 Dose: 25 units Documented by: MAXIMILIANO Cosigned by: OLSOMAL Insulin Human Lispro (Humalog) 0 unit SUBCUT TIDMEALS [facility]; Protocol Last Admin: 06/25/20 12:30 Dose: 1 units Documented by: MAXIMILIANO Cosigned by: [email or web address] Admin: 06/25/20 08:00 Dose: Not Given Documented by: Admin: 06/24/20 18:00 Dose: Not Given Documented by: VAIBHAV Magnesium Oxide (Magnesium Oxide) 400 mg PO DAILY@1800 [facility] Metoprolol Tartrate (Lopressor) 25 mg PO BID [facility] Last Admin: 06/25/20 09:00 Dose: 25 mg Documented by: Admin: 06/24/20 21:21 Dose: 25 mg Documented by: DAVID Ondansetron HCl (Zofran) 4 mg IV Q8H PRN PRN Reason: Nausea/Vomiting Pantoprazole Sodium (Protonix Iv) 40 mg IVPUSH DAILY [facility] Last Admin: 06/25/20 10:18 Dose: 40 mg Documented by: Admin: 06/24/20 18:56 Dose: 40 mg Documented by: VAIBHAV Potassium Chloride (Klor-Con M20) 20 meq PO BID [facility] Last Admin: 06/25/20 11:07 Dose: 20 meq Documented by: MAXIMILIANO Sodium Chloride (Saline Flush) 10 ml FLUSH ASDIRECTED PRN PRN Reason: Keep Vein Open Last Admin: 06/25/20 10:27 Dose: 10 ml Documented by: MAXIMILIANO Trazodone HCl (Trazodone) 50 mg PO BEDTIME [facility] Assessment/Plan Comment:: 1. Admit for observation for nausea, vomiting, diarrhea with body aches after 2nd covid vaccination. No evidence for gastroenteritis on CT abdomen/pelvis. No acute process on CT. 2. Nausea/vomiting/diarrhea: improving, NS at 75 ml/hr, will saline lock once she finishes current bag. Advance diet to Consistent carb diet. If she tolerates, most likely will go home tomorrow. UA showed hematuria, asymptomatic. Repeat UA as no signs of infection on microscopic. 3. Magnesium & potassium low secondary to diarrhea: replace and repeat labs in am. 4. Activity as tolerated. 5. DVT prophylaxis: TEDs BLE. 6. CODE STATUS: DNR/DNI. Family unable to bring home medications in for observation status, will only order pertinent medications. 7. Discharge: anticipate discharge tomorrow. - Mortality Measure Prognosis:: Good
[2020-06-25] MEDS ORDERED: Magnesium Oxide 400 MG Tab PO SCH (18:00)
[2020-06-25] MEDS ORDERED: traZODone 50 MG Tab PO SCH (21:00)
[2020-06-26] MEDS: Insulin Lispro 100 Unit/ML 3 ML KwikPen SUBCUT SCH ×2 (07:48→11:49)
[2020-06-26] MEDS: Insulin Glargine,Human Rec. Analog 100 Units/ML 3 ML Pen SUBCUT SCH (08:22)
[2020-06-26] MEDS: Potassium Chloride 20 MEQ Tab.ER PO SCH (08:52)
[2020-06-26] MEDS: Metoprolol Tartrate 25 MG Tab PO SCH (08:52)
[2020-06-26] MEDS: Aspirin 81 MG Tab.Chew PO SCH (08:52)
[2020-06-26 08:53] VITALS: BP 117/62; PULSE 55
[2020-06-26] MEDS: Pantoprazole 40 MG Vial IVPUSH SCH (09:07)
--- NOTE | 2020-06-26 11:04 | PCM.DCSUM1 ---
Discharge Summary - Hospital Course HPI Initial Comments: Janice started having Nausea, vomiting and diarrhea yesterday morning, loose brown stools. Denies any fevers, chills, sinus symptoms, shortness of breath, chest pain, abdominal pain. Had body aches yesterday. Had 2nd Covid vaccine 06/22/2020 at [facility]. Covid test negative. WBC was 11.6, 7.9 today. UA showed blood, 10-20 RBC but no Leukocyte esterase, nitrates or WBC in urine. Received 1 dose of Zosyn in ER. No urine culture done. No urinary symptoms. She has history of diabetes, on insulin. Lives alone. Magnesium 1.5, Potassium 3.1. Family unable to bring her home medications in. Diagnosis: Stroke: No - Discharge Data Discharge Date: 06/26/20 Discharge Disposition: Home, Self-Care 01 Condition: Good - Referral to Home Health Primary Care Physician: Ling Barnes, [employer] - Discharge Diagnosis/Problem(s) (1) Nausea & vomiting SNOMED Code(s): 57638906 ICD Code: R11.2 - NAUSEA WITH VOMITING, UNSPECIFIED Status: Resolved Current Visit: Yes (2) Diarrhea after vaccination SNOMED Code(s): 28384126 ICD Code: R19.7 - DIARRHEA, UNSPECIFIED; T50.Z95A - ADVERSE EFFECT OF VACCINES AND BIOLOGICAL SUBSTANCES, INIT Status: Resolved Current Visit: Yes (3) Adverse effect of COVID-19 vaccine SNOMED Code(s): 869220246 ICD Code: T50.B95A - ADVERSE EFFECT OF OTHER VIRAL VACCINES, INITIAL ENCOUNTER Status: Acute Current Visit: Yes (4) Hypokalemia due to excessive gastrointestinal loss of potassium SNOMED Code(s): 60237911 ICD Code: E87.6 - HYPOKALEMIA Status: Resolved Current Visit: Yes (5) Hypomagnesemia SNOMED Code(s): 589516811 ICD Code: E83.42 - HYPOMAGNESEMIA Status: Acute Current Visit: Yes Problem Details: Improved (6) Diabetes SNOMED Code(s): 38511436 ICD Code: E11.9 - TYPE 2 DIABETES MELLITUS WITHOUT COMPLICATIONS Status: Chronic Current Visit: Yes Qualifiers: Diabetes mellitus type: type 2 Diabetes mellitus exterminator helper termite insulin use: with exterminator helper termite use (7) Hypertension SNOMED Code(s): 83227719 ICD Code: I10 - ESSENTIAL (PRIMARY) HYPERTENSION Status: Chronic Current Visit: Yes (8) GERD (gastroesophageal reflux disease) SNOMED Code(s): 686744462 ICD Code: K21.9 - GASTRO-ESOPHAGEAL REFLUX DISEASE WITHOUT ESOPHAGITIS Status: Chronic Current Visit: Yes (9) Hyperlipidemia SNOMED Code(s): 81376785 ICD Code: E78.5 - HYPERLIPIDEMIA, UNSPECIFIED Status: Chronic Current Visit: Yes (10) Gastroenteritis SNOMED Code(s): 77135253 ICD Code: K52.9 - NONINFECTIVE GASTROENTERITIS AND COLITIS, UNSPECIFIED Status: Ruled-out Current Visit: Yes - Patient Summary/Data Hospital Course: Janice was admitted for nausea, vomiting, diarrhea started <24 hours prior to admission. She did not have any further emesis or diarrhea on the floor so stool culture and C. difficile were cancelled. CT abdomen/pelvis were negative for any acute process, no kidney stones, gastroenteritis was ruled out. Next morning after admission still had some abdominal pain but no other symptoms, diet was advanced without issue. Her potassium and magnesium were low, supplemented and potassium corrected morning of discharge and Magnesium was 1.7. Will continue on supplements and recheck at clinic. Her urine showed moderate blood 10-20 RBC, repeat showed 5-10 RBCs, few epithelials and few bacteria. Urine culture had no growth at 1 day. Her WBC was slightly elevated at 11.6, elevated lactic acid 2.8, came down to 1.0 received 1 dose of Zosyn in ER was discontinued on floor, no source of infection. She received IV fluids in ER they were discontinued next morning, tolerated oral hydration well. Discharge today home with family, with c lose follow up in the clinic with primary. - Patient Instructions Diet: Diabetic Diet Activity: As Tolerated Driving: May Drive Today Showering/Bathing: May Shower Notify Provider of: Fever, Increased Pain, Nausea and/or Vomiting Other/Special Instructions: Follow up with Ling Barnes NP at [facility] in 2-3 days for recheck of your potassium and magnesium which were low due to the diarrhea. Also had blood in your urine but no growth on urine culture and no signs of infection so would need repeat urine at the clinic. - Discharge Plan *PRESCRIPTION DRUG MONITORING PROGRAM REVIEWED*: Not Applicable *COPY OF PRESCRIPTION DRUG MONITORING REPORT IN PATIENT SHERIF: Not Applicable Prescriptions/Med Rec: Magnesium Oxide 400 mg PO DAILY@1800 #7 tablet Home Medications: Home Meds Aspirin 81 mg PO DAILY 12/05/15 [History] Insulin Detemir [Levemir] 25 units SUBCUT DAILY 12/05/15 [History] Metoprolol Tartrate 25 mg PO BID 12/05/15 [History] Multivitamin [Multivitamins] 1 cap PO DAILY 12/05/15 [History] Simvastatin 20 mg PO DAILY 12/05/15 [History] Triamterene/Hydrochlorothiazid [Triamterene-HCTZ 37.5-25 MG] 1 cap PO DAILY 12/05/15 [History] Insulin Aspart [NovoLOG] 0 unit SQ WITHMEALSANDBED PRN 05/15/16 [History] Acetaminophen [Acetaminophen Extra Strength] 1,000 mg PO Q6HR PRN 06/24/20 [History] Calcium Carbonate [Calcium] 500 mg PO TID 06/24/20 [History] Raloxifene [Evista] 60 mg PO DAILY 06/24/20 [History] Sennosides/Docusate Sodium [Senna Plus 8.6-50 mg Softgel] 1 tab PO BID 06/24/20 [History] traMADol [Ultram] 50 mg PO BEDTIME PRN 06/24/20 [History] traZODone 50 mg PO BEDTIME 06/24/20 [History] Magnesium Oxide 400 mg PO DAILY@1800 #7 tablet 06/26/20 [Rx] Niacin [Niacin ER] 500 mg PO Q48H 06/26/20 [History] Omeprazole 20 mg PO Q48H 06/26/20 [History] Potassium Chloride [Klor-Con 10] 10 meq PO Q48H 06/26/20 [History] glipiZIDE [Glipizide ER] 5 mg PO BID 06/26/20 [History] Oxygen Therapy Mode: Room Air Patient Handouts: Gastritis, Adult, [id number], Nausea and Vomiting, Adult, Fall Prevention in the Home, Adult, Venous Thromboembolism Prevention Forms: ED Department Discharge Referrals: Ling Barnes [employer] [Primary Care Provider] - - Discharge Summary/Plan Comment DC Time >30 min.: No - General Info Date of Service: 06/26/20 Subjective Update: She is feeling good, had no issues with her lunch or dinner yesterday, having coffee this morning waiting for her breakfast. She feels she is at her base line. Blood sugar was 87 this morning but no symptoms of hypoglycemia. No edema. No nausea, vomiting, diarrhea, hematuria. - Patient Data Vitals - Most Recent: Last Vital Signs Temp 98 F 06/26/20 08:00 Pulse 55 L 06/26/20 08:52 Resp 18 06/26/20 08:00 BP 117/62 06/26/20 08:52 Pulse Ox 97 06/26/20 08:00 Weight - Most Recent: 145 lb 9 oz I&O - Last 24 hours: Intake & Output 06/25/20 06/26/20 06/26/20 22:59 06:59 14:59 Intake Total 1040 200 Output Total 300 Balance 740 200 Lab Results - Last 24 hrs: Laboratory Results - last 24 hr 06/25/20 06/25/20 06/25/20 Range/Units 09:52 11:33 14:00 WBC (3.0-10.3) x10-3/uL RBC (3.60-5.20) x10(6)uL Hgb (11.4-15.5) g/dL Hct (34.2-48.2) % MCV (76.7-100.5) fL MCH (23.9-33.9) pg MCHC (31.9-34.8) g/dL RDW (12.3-16.5) % Plt Count (151-488) x10(3)uL MPV (7.1-12.4) fL Neut % (Auto) (30.8-76.2) % Lymph % (Auto) (18.4-52.1) % Coleman % (Auto) (4.4-15.7) % Eos % (Auto) (0.6-8.1) % Baso % (Auto) (0.2-1.5) % Neut # (Auto) (1.5-6.3) x10-3/uL Lymph # (Auto) (1.0-4.4) x10-3/uL Coleman # (Auto) (0.3-1.0) x10-3/uL Eos # (Auto) (0.0-0.8) x10-3/uL Baso # (Auto) (0.0-0.1) x10-3/uL Sodium (135-145) mmol/L Potassium (3.5-5.3) mmol/L Chloride (100-110) mmol/L Carbon Dioxide (21-32) mmol/L BUN (7-18) mg/dL Creatinine (0.55-1.02) mg/dL Est Cr Clr Drug Dosing mL/min Estimated GFR (MDRD) (>60) BUN/Creatinine Ratio (9-20) Glucose (80-116) mg/dL POC Glucose 162 H 172 H (74-100) mg/dL Calcium (8.6-10.2) mg/dL Magnesium (1.8-2.5) mg/dL Urine Color Yellow (YELLOW) Urine Appearance Clear (CLEAR) Urine pH 5.0 (5.0-6.5) Ur Specific [place] 1.015 (1.010-1.025) Urine Protein Negative (NEGATIVE) mg/dL Urine Glucose (UA) Normal (NORMAL) mg/dL Urine Ketones Negative (NEGATIVE) mg/dL Urine Occult Blood Moderate H (NEGATIVE) Urine Nitrite Negative (NEGATIVE) Urine Bilirubin Negative (NEGATIVE) Urine Urobilinogen Normal (NEGATIVE) mg/dL Ur Leukocyte Esterase Negative (NEGATIVE) Urine RBC 5-10 H (0-5) Urine WBC 0-5 (0-5) Ur Squamous Epith Cells Few H (NS,R,O) Urine Bacteria Few H (NS) 06/25/20 06/25/20 06/26/20 Range/Units 17:05 20:25 06:40 WBC 7.7 (3.0-10.3) x10-3/uL RBC 4.18 (3.60-5.20) x10(6)uL Hgb 12.0 (11.4-15.5) g/dL Hct 38.1 (34.2-48.2) % MCV 91.2 (76.7-100.5) fL MCH 28.6 (23.9-33.9) pg MCHC 31.4 L (31.9-34.8) g/dL RDW 14.3 (12.3-16.5) % Plt Count 102 L (151-488) x10(3)uL MPV 7.7 (7.1-12.4) fL Neut % (Auto) 44.4 (30.8-76.2) % Lymph % (Auto) 43.6 (18.4-52.1) % Coleman % (Auto) 8.4 (4.4-15.7) % Eos % (Auto) 3.4 (0.6-8.1) % Baso % (Auto) 0.2 (0.2-1.5) % Neut # (Auto) 3.4 (1.5-6.3) x10-3/uL Lymph # (Auto) 3.4 (1.0-4.4) x10-3/uL Coleman # (Auto) 0.6 (0.3-1.0) x10-3/uL Eos # (Auto) 0.3 (0.0-0.8) x10-3/uL Baso # (Auto) 0.0 (0.0-0.1) x10-3/uL Sodium (135-145) mmol/L Potassium (3.5-5.3) mmol/L Chloride (100-110) mmol/L Carbon Dioxide (21-32) mmol/L BUN (7-18) mg/dL Creatinine (0.55-1.02) mg/dL Est Cr Clr Drug Dosing mL/min Estimated GFR (MDRD) (>60) BUN/Creatinine Ratio (9-20) Glucose (80-116) mg/dL POC Glucose 119 H 121 H (74-100) mg/dL Calcium (8.6-10.2) mg/dL Magnesium (1.8-2.5) mg/dL Urine Color (YELLOW) Urine Appearance (CLEAR) Urine pH (5.0-6.5) Ur Specific [place] (1.010-1.025) Urine Protein (NEGATIVE) mg/dL Urine Glucose (UA) (NORMAL) mg/dL Urine Ketones (NEGATIVE) mg/dL Urine Occult Blood (NEGATIVE) Urine Nitrite (NEGATIVE) Urine Bilirubin (NEGATIVE) Urine Urobilinogen (NEGATIVE) mg/dL Ur Leukocyte Esterase (NEGATIVE) Urine RBC (0-5) Urine WBC (0-5) Ur Squamous Epith Cells (NS,R,O) Urine Bacteria (NS) 06/26/20 Range/Units 06:40 WBC (3.0-10.3) x10-3/uL RBC (3.60-5.20) x10(6)uL Hgb (11.4-15.5) g/dL Hct (34.2-48.2) % MCV (76.7-100.5) fL MCH (23.9-33.9) pg MCHC (31.9-34.8) g/dL RDW (12.3-16.5) % Plt Count (151-488) x10(3)uL MPV (7.1-12.4) fL Neut % (Auto) (30.8-76.2) % Lymph % (Auto) (18.4-52.1) % Coleman % (Auto) (4.4-15.7) % Eos % (Auto) (0.6-8.1) % Baso % (Auto) (0.2-1.5) % Neut # (Auto) (1.5-6.3) x10-3/uL Lymph # (Auto) (1.0-4.4) x10-3/uL Coleman # (Auto) (0.3-1.0) x10-3/uL Eos # (Auto) (0.0-0.8) x10-3/uL Baso # (Auto) (0.0-0.1) x10-3/uL Sodium 143 (135-145) mmol/L Potassium 3.8 (3.5-5.3) mmol/L Chloride 108 (100-110) mmol/L Carbon Dioxide 28 (21-32) mmol/L BUN 16 (7-18) mg/dL Creatinine 1.4 H (0.55-1.02) mg/dL Est Cr Clr Drug Dosing 22.39 mL/min Estimated GFR (MDRD) 36 L (>60) BUN/Creatinine Ratio 11.4 (9-20) Glucose 87 (80-116) mg/dL POC Glucose (74-100) mg/dL Calcium 8.1 L (8.6-10.2) mg/dL Magnesium 1.7 L (1.8-2.5) mg/dL Urine Color (YELLOW) Urine Appearance (CLEAR) Urine pH (5.0-6.5) Ur Specific [place] (1.010-1.025) Urine Protein (NEGATIVE) mg/dL Urine Glucose (UA) (NORMAL) mg/dL Urine Ketones (NEGATIVE) mg/dL Urine Occult Blood (NEGATIVE) Urine Nitrite (NEGATIVE) Urine Bilirubin (NEGATIVE) Urine Urobilinogen (NEGATIVE) mg/dL Ur Leukocyte Esterase (NEGATIVE) Urine RBC (0-5) Urine WBC (0-5) Ur Squamous Epith Cells (NS,R,O) Urine Bacteria (NS) ИВАН Results - Last 24 hrs: Microbiology 06/24/20 16:20 Aerobic Blood Culture - Preliminary Blood - Venous NO GROWTH AFTER 1 DAY Anaerobic Blood Culture - Preliminary NO GROWTH AFTER 1 DAY 06/24/20 16:25 Aerobic Blood Culture - Preliminary Blood - Venous - Lab Draw NO GROWTH AFTER 1 DAY Anaerobic Blood Culture - Preliminary NO GROWTH AFTER 1 DAY Med Orders - Current: Current Medications Acetaminophen (Tylenol Extra Strength) 1,000 mg PO Q6H PRN PRN Reason: Pain Last Admin: 06/25/20 20:31 Dose: 1,000 mg Documented by: Aspirin (Aspirin) 81 mg PO DAILY [facility] Last Admin: 06/26/20 08:52 Dose: Not Given Documented by: Dextrose/Water (Dextrose 50% In Water) 50 ml IVPUSH ASDIRECTED PRN PRN Reason: Hypoglycemia Glucagon (Glucagen) 1 mg IM ASDIRECTED PRN PRN Reason: Hypoglycemia Insulin Glargine (Lantus Solostar) 25 units SUBCUT DAILY [facility] Last Admin: 06/26/20 08:22 Dose: 25 units Documented by: Insulin Human Lispro (Humalog) 0 unit SUBCUT TIDMEALS [facility]; Protocol Last Admin: 06/26/20 07:48 Dose: Not Given Documented by: Magnesium Oxide (Magnesium Oxide) 400 mg PO DAILY@1800 [facility] Last Admin: 06/25/20 18:36 Dose: 400 mg Documented by: Metoprolol Tartrate (Lopressor) 25 mg PO BID [facility] Last Admin: 06/26/20 08:52 Dose: Not Given Documented by: Ondansetron HCl (Zofran) 4 mg IV Q8H PRN PRN Reason: Nausea/Vomiting Pantoprazole Sodium (Protonix Iv) 40 mg IVPUSH DAILY [facility] Last Admin: 06/26/20 09:07 Dose: 40 mg Documented by: Potassium Chloride (Klor-Con M20) 20 meq PO BID [facility] Last Admin: 06/26/20 08:52 Dose: Not Given Documented by: Sodium Chloride (Saline Flush) 10 ml FLUSH ASDIRECTED PRN PRN Reason: Keep Vein Open Last Admin: 06/25/20 10:27 Dose: 10 ml Documented by: Trazodone HCl (Trazodone) 50 mg PO BEDTIME [facility] Last Admin: 06/25/20 20:28 Dose: 50 mg Documented by: Discontinued Medications Sodium Chloride (Normal Saline) 500 mls @ 500 mls/hr IV .BOLUS ONE Stop: 06/24/20 17:09 Last Admin: 06/24/20 16:59 Dose: 500 mls/hr Documented by: Sodium Chloride (Normal Saline) 1,000 mls @ 999 mls/hr IV ASDIRECTED [facility] Piperacillin Sod/Tazobactam (Sod 2.25 gm/ Sodium Chloride) 50 mls @ 100 mls/hr IV .ONCE ONE Stop: 06/24/20 18:32 Last Admin: 06/24/20 18:28 Dose: 100 mls/hr Documented by: Sodium Chloride (Normal Saline) 1,000 mls @ 100 mls/hr IV ASDIRECTED [facility] Last Admin: 06/25/20 06:00 Dose: 100 mls/hr Documented by: Piperacillin Sod/Tazobactam (Sod 2.25 gm/ Sodium Chloride) 50 mls @ 100 mls/hr IV Q8H [facility] Last Admin: 06/25/20 10:21 Dose: 100 mls/hr Documented by: Ondansetron HCl (Zofran) 4 mg IVPUSH ONETIME ONE Stop: 06/24/20 16:12 Last Admin: 06/24/20 17:00 Dose: 4 mg Documented by: Trazodone HCl (Trazodone) 50 mg PO BEDTIME [facility] Stop: 06/24/20 22:00 Last Admin: 06/24/20 21:28 Dose: 50 mg Documented by: Trazodone HCl (Trazodone) Confirm Administered Dose 50 mg .ROUTE .STK-MED ONE Stop: 06/24/20 21:20 Last Admin: 06/24/20 21:29 Dose: Not Given Documented by: - Exam General: Reports: Alert, Oriented, Cooperative, No Acute Distress Lungs: Reports: Clear to Auscultation, Normal Respiratory Effort Cardiovascular: Reports: Regular Rate, Regular Rhythm GI/Abdominal Exam: Normal Bowel Sounds, Soft, Non-Tender, No Distention Extremities: No Pedal Edema Skin: Reports: Warm, Dry, Intact *Q Meaningful Use (DIS) - VTE *Q VTE Mechanical Contraindications *Q: At Risk for Falls
== END 2020-06-26 12:45 | disposition home or self-care (01) ==
LOC: FB.ED 16:07 → FB.MS 17:58
PROVIDERS: ADMIT Family Medicine; ATTEND Family Medicine
DX: R11.2 Nausea with vomiting, unspecified (principal); R19.7 Diarrhea, unspecified; T50.B95A Adverse effect of other viral vaccines, initial encounter; Z20.822 Contact with and (suspected) exposure to COVID-19; E11.22 Type 2 diabetes mellitus with diabetic chronic kidney disease; N18.9 Chronic kidney disease, unspecified; E78.00 Pure hypercholesterolemia, unspecified; I48.91 Unspecified atrial fibrillation; K21.9 Gastro-esophageal reflux disease without esophagitis; M10.9 Gout, unspecified; M81.0 Age-related osteoporosis without current pathological fracture; I25.10 Atherosclerotic heart disease of native coronary artery without angina pectoris; J84.10 Pulmonary fibrosis, unspecified; Z91.041 Radiographic dye allergy status; Z88.8 Allergy status to other drugs, medicaments and biological substances; Z79.4 Long term (current) use of insulin; Z79.82 Long term (current) use of aspirin; Z79.899 Other long term (current) drug therapy; Z85.3 Personal history of malignant neoplasm of breast; Z90.12 Acquired absence of left breast and nipple; Z98.890 Other specified postprocedural states
CPT/HCPCS: 36415; 74176; 80048; 80053; 81001; 82962; 83605; 83735; 85025; 87040; 87086; 93005; 96365; 96375; 96376; 99284; 99285; A9270; C9113; G0378; J1815; J2405; J2543; J7030; J7040; U0002